=== PATIENT | male | born 1945 ===

== ENCOUNTER 2018-06-05 16:00 | Outpatient (CLI) | payer MEDICARE ==
--- NOTE | 2018-06-07 07:24 | Magnetic Resonance Report ---
FINAL REPORT EXAM: MR PELVIS WO CON HISTORY: PRESSURE ULCER TECHNIQUE: Multisequence, multiplanar MR imaging is obtained through the pelvis without contrast PRIORS: None. FINDINGS: Focal decreased T1 weighted and increased T2 weighted signal extends through the soft tissues posterior to the distal sacrum and coccyx and penetrates the posterior cortex of the distal sacrum and coccyx with marrow replacing signal abnormality demonstrated on sagittal series 7 and 8 and images 33-35. No focal fluid collection identified. 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 Right femoral neck subchondral avascular necrosis. No proximal femur or pelvic fracture. Muscular atrophy surrounds the pelvis. 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 Irregular urinary bladder wall thickening. No pelvic lymphadenopathy identified. The imaged hollow enteric organs are normal in caliber. IMPRESSION: Sacrococcygeal osteomyelitis with overlying skin ulceration. No focal fluid collection identified within limits of this exam. 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 Urology follow-up is suggested for consideration of cystoscopy. Notification initiated via Vern director of academic support following this dictation on 06/07/2018.
== END 2018-06-05 16:01 | disposition home or self-care (01) ==
LOC: MRI 16:00
PROVIDERS: ATTEND Surgery
DX: E11.622 Type 2 diabetes mellitus with other skin ulcer (principal); L89.153 Pressure ulcer of sacral region, stage 3; L98.421 Non-pressure chronic ulcer of back limited to breakdown of skin; M16.0 Bilateral primary osteoarthritis of hip; M46.28 Osteomyelitis of vertebra, sacral and sacrococcygeal region; I10 Essential (primary) hypertension; M19.90 Unspecified osteoarthritis, unspecified site
CPT/HCPCS: 72195

== ENCOUNTER 2018-06-08 08:22 | Outpatient (CLI) | payer MEDICARE ==
[2018-06-08] MEDS ORDERED: XYLOCAINE TOPICAL 4% TP ONE ×2 (08:36→11:21)
== END 2018-06-08 08:23 | disposition home or self-care (01) ==
LOC: WOUND 08:22
PROVIDERS: ATTEND Surgery
DX: L89.154 Pressure ulcer of sacral region, stage 4 (principal); I10 Essential (primary) hypertension; M46.28 Osteomyelitis of vertebra, sacral and sacrococcygeal region; Z87.891 Personal history of nicotine dependence

== ENCOUNTER 2018-06-22 08:12 | Outpatient (CLI) | payer MEDICARE ==
[2018-06-22] MEDS ORDERED: XYLOCAINE TOPICAL 4% TP ONE ×2 (08:23→15:51)
== END 2018-06-22 08:13 | disposition home or self-care (01) ==
LOC: WOUND 08:12
PROVIDERS: ATTEND Surgery
DX: L89.154 Pressure ulcer of sacral region, stage 4 (principal); I10 Essential (primary) hypertension; M86.8X8 Other osteomyelitis, other site; Z87.891 Personal history of nicotine dependence

== ENCOUNTER 2018-09-14 08:06 | Outpatient (CLI) | payer MEDICARE | END 2018-09-14 08:07 | disposition home or self-care (01) | LOC: WOUND 08:06 ==

== ENCOUNTER 2018-10-05 08:13 | Outpatient (CLI) | payer MEDICARE ==
[2018-10-05] MEDS ORDERED: XYLOCAINE TOPICAL 4% TP ONE (08:26)
[2018-10-05] MEDS ORDERED: AD OINTMENT TP PRN (08:58)
[2018-10-05] MEDS ORDERED: SILVER NITRATE TP ONE (09:01)
== END 2018-10-05 08:14 | disposition home or self-care (01) ==
LOC: WOUND 08:13
PROVIDERS: ATTEND Surgery
DX: L89.153 Pressure ulcer of sacral region, stage 3 (principal); L89.212 Pressure ulcer of right hip, stage 2; L89.142 Pressure ulcer of left lower back, stage 2; L89.619 Pressure ulcer of right heel, unspecified stage; L89.319 Pressure ulcer of right buttock, unspecified stage; M86.8X8 Other osteomyelitis, other site; G35 Multiple sclerosis; I10 Essential (primary) hypertension; Z87.891 Personal history of nicotine dependence
CPT/HCPCS: A6250